=== PATIENT | male | born 1985 | race Asian ===

== ENCOUNTER 2020-03-13 08:39 | Outpatient (NON) | payer BC, SELFPAY ==
[2020-03-14 02:52] LABS: SARS-CoV-2 RNA PCR Positive
== END 2020-03-13 08:40 ==
PROVIDERS: Visit Provider Family Medicine
DX: U07.1 COVID-19 (principal)
CPT/HCPCS: 87635; C9803; U0003

== ENCOUNTER 2020-09-30 15:21 | Outpatient (CLI) | payer BC, SELFPAY | END 2020-09-30 15:22 | disposition home or self-care (01) | LOC: ANHCOVIDVC 15:21 | PROVIDERS: PCP Family Medicine | DX: Z23 Encounter for immunization (principal) | CPT/HCPCS: 0001A; 91300 ==

== ENCOUNTER 2020-10-21 15:15 | Outpatient (CLI) | payer BC, SELFPAY | END 2020-10-21 15:16 | disposition home or self-care (01) | LOC: ANHCOVIDVC 15:15 | PROVIDERS: PCP Family Medicine | DX: Z23 Encounter for immunization (principal) | CPT/HCPCS: 0002A; 91300 ==

== ENCOUNTER 2022-03-03 11:41 | Outpatient (CLI) | payer OTHER, SELFPAY ==
[2022-03-03 19:23] LABS: Basophils Percent Auto 0.5 % (0.2-1.2); Eosinophils Absolute Auto 0.1 K/mm3 (0-0.3); Eosinophils Percent Auto 1.1 % (0-4.4); Hematocrit 43.3 % (42.0-52.0); Hemoglobin 14.7 g/dL (14.0-18.0); Immature Granulocyte Absolute 0.04 K/mm3 (0.00-0.031); Immature Granulocyte Percent A 0.6 % (0-0.5); Lymphocytes Absolute Auto 2.74 K/mm3 (0.9-3.2); Lymphocytes Percent Auto 43.8 % (18.3-44.2); Mean Corpuscular HGB Conc 33.9 g/dl (32-36); Mean Corpuscular Hemoglobin 29.2 pg (26-34); Mean Corpuscular Volume 86.1 fl (80-100); Mean Platelet Volume 10.1 fl (7.4-10.4); Monocytes Absolute Auto 0.4 K/mm3 (0.1-0.6); Monocytes Percent Auto 6.6 % (2.6-8.5); Neutrophils Percent Auto 47.4 % (45.5-73.1); Platelet Count Result 290 k/mm3 (150-375); Red Blood Count 5.03 M/mm3 (4.6-6.20); Red Cell Distribution Width 11.6 % (11.5-14.5); White Blood Count 6.3 K/mm3 (4.5-10.0)
[2022-03-03 20:00] LABS: Microalbumin Urine Random 44.7 mg/L (0-16.7)
[2022-03-03 20:03] LABS: Creatinine Urine 136.3 mg/dL; MALB Creatinine Ratio 32.8 mg/g (0-30)
[2022-03-03 20:08] LABS: Alanine Aminotransferase 38 U/L (6-50); Alkaline Phosphatase 83 U/L (38-126); Anion Gap 15 mmol/L (8-16); Aspartate Amino Transferase 31 U/L (17-59); Bilirubin,Total 0.8 mg/dL (0.2-1.3); Blood Urea Nitrogen 15 mg/dL (9-20); Calcium 9.7 mg/dL (8.4-10.2); Carbon Dioxide 22 mmol/L (22-30); Chloride 100 mmol/L (98-107); Cholesterol 172 mg/dL (0-200); Estimated Glomerular Filt Rate > 60; Glucose 133 mg/dL (65-110); HDL Direct 25 mg/dL; Potassium 4.5 mmol/L (3.4-5.0); Sodium 137 mmol/L (137-145); Triglycerides 259 mg/dL (<150)
[2022-03-03 20:17] LABS: Vitamin D 25 Hydroxy 37.7 ng/mL
[2022-03-03 20:26] LABS: LDL Cholesterol Direct 91 mg/dL
[2022-03-03 20:42] LABS: Hemoglobin A1C 8.2 % (<5.7)
== END 2022-03-03 11:42 | disposition home or self-care (01) ==
LOC: ANHGOSHLAB 11:42
PROVIDERS: PCP Family Medicine; Visit Provider Family Medicine
DX: Z00.00 Encounter for general adult medical examination without abnormal findings (principal); E11.9 Type 2 diabetes mellitus without complications; E53.8 Deficiency of other specified B group vitamins; E78.5 Hyperlipidemia, unspecified; E55.9 Vitamin D deficiency, unspecified; Z79.899 Other long term (current) drug therapy; Z13.29 Encounter for screening for other suspected endocrine disorder
CPT/HCPCS: 36415; 80053; 80061; 82043; 82306; 82607; 83036; 84443; 85025

== ENCOUNTER 2023-02-18 11:41 | Outpatient (CLI) | payer OTHER, SELFPAY ==
--- NOTE | ~2023-02-18 | XR_ITS ---
XR hand LT min 3V DATE: 02/18/2023 11:57 INDICATION: Fracture of left ring finger with ORIF in 2000. New onset of pain of the fourth digit TECHNIQUE: 3 views of left hand COMPARISON: None FINDINGS: There are 2 screws through the distal shaft of the proximal phalanx of fourth finger No recent fracture or dislocation, periosteal reaction or bone destruction, radiopaque soft tissue fo reign body or subcutaneous emphysema. No erosive changes or chondrocalcinosis are noted. IMPRESSION: Postoperative change of proximal phalanx of fourth digit; no acute finding Reviewed, dictated and finalized at location B.
== END 2023-02-18 11:42 | disposition home or self-care (01) ==
LOC: ANHIMG 11:44
PROVIDERS: PCP Family Medicine; Visit Provider Plastic Surgery
DX: M79.645 Pain in left finger(s) (principal); S62.605 Fracture of unspecified phalanx of left ring finger; X58.XXXS Exposure to other specified factors, sequela
CPT/HCPCS: 73130

== ENCOUNTER 2023-10-19 08:28 | Outpatient (CLI) | payer OTHER, SELFPAY ==
[2023-10-19 18:32] LABS: Basophils Percent Auto 0.6 % (0.2-1.2); Eosinophils Absolute Auto 0.3 K/mm3 (0-0.3); Eosinophils Percent Auto 3.5 % (0-4.4); Hematocrit 47.4 % (42.0-52.0); Hemoglobin 15.7 g/dL (14.0-18.0); Immature Granulocyte Absolute 0.03 K/mm3 (0.00-0.031); Immature Granulocyte Percent A 0.4 % (0-0.5); Lymphocytes Absolute Auto 2.26 K/mm3 (0.9-3.2); Mean Corpuscular HGB Conc 33.1 g/dl (32-36); Mean Corpuscular Hemoglobin 30.1 pg (26-34); Mean Corpuscular Volume 90.8 fl (80-100); Mean Platelet Volume 9.9 fl (7.4-10.4); Monocytes Absolute Auto 0.6 K/mm3 (0.1-0.6); Monocytes Percent Auto 8.9 % (2.6-8.5); Neutrophils Absolute Auto 3.9 K/mm3 (1.3-6.7); Neutrophils Percent Auto 54.6 % (45.5-73.1); Platelet Count Result 278 k/mm3 (150-375); Red Blood Count 5.22 M/mm3 (4.6-6.20); White Blood Count 7.1 K/mm3 (4.5-10.0)
[2023-10-19 18:57] LABS: Alanine Aminotransferase 40 U/L (6-50); Albumin Level 4.7 g/dL (3.5-5.1); Alkaline Phosphatase 68 U/L (38-126); Anion Gap 10 mmol/L (4-12); Aspartate Amino Transferase 42 U/L (17-59); Bilirubin,Total 0.9 mg/dL (0.2-1.3); Blood Urea Nitrogen 11 mg/dL (9-20); Calcium 9.8 mg/dL (8.4-10.2); Carbon Dioxide 26 mmol/L (22-30); Chloride 103 mmol/L (98-107); Cholesterol 176 mg/dL (0-200); Estimated Glomerular Filt Rate > 60; Glucose 132 mg/dL (65-110); HDL Direct 37 mg/dL; Potassium 4.5 mmol/L (3.4-5.0); Sodium 139 mmol/L (137-145); Triglycerides 263 mg/dL (<150)
[2023-10-19 19:08] LABS: LDL Cholesterol Direct 105 mg/dL
[2023-10-19 19:22] LABS: Vitamin D 25 Hydroxy 27.2 ng/mL
[2023-10-19 19:33] LABS: Creatinine Urine 57.2 mg/dL
[2023-10-19 19:39] LABS: MALB Creatinine Ratio 17.7 mg/g (0-30); Microalbumin Urine Random 10.1 mg/L (0-16.7)
== END 2023-10-19 08:29 | disposition home or self-care (01) ==
PROVIDERS: PCP Family Medicine; Visit Provider Family Medicine
DX: E55.9 Vitamin D deficiency, unspecified (principal); E53.8 Deficiency of other specified B group vitamins; E11.9 Type 2 diabetes mellitus without complications; Z00.00 Encounter for general adult medical examination without abnormal findings; E78.5 Hyperlipidemia, unspecified; Z79.899 Other long term (current) drug therapy; Z13.29 Encounter for screening for other suspected endocrine disorder
CPT/HCPCS: 36415; 80053; 80061; 82043; 82306; 82607; 83036; 84443; 85025